=== PATIENT | female | born 1985 | race American Indian/Alaskan Native ===

== ENCOUNTER 2017-04-26 08:17 | Emergency (ER) | payer MEDICAID, OTHER ==
--- NOTE | 2017-04-26 08:39 | EDM.PDOC ---
ED HPI GENERAL MEDICAL PROBLEM - General Chief Complaint: Upper Extremity Injury/Pain Stated Complaint: rib pain. crushed by a door few days ago [phone] Time Seen by Provider: 04/26/17 08:34 Source of Information: Reports: Patient, RN Notes Reviewed - History of Present Illness INITIAL COMMENTS - FREE TEXT/NARRATIVE: Yesterday the patient was hit between a wall and a door when the wind caught the door and smashed her between the door. She c/o of left humerus and left ribs - states the arm hurts to move and the left arm and pain with deep breath Duration: Day(s): (1 day ago) Quality: Reports: Ache, Dull Severity: Mild Improves with: Reports: Rest Worsens with: Reports: Movement Treatments PROGRAM EVALUATION CONSULTANT: Reports: Other (see below) (yasmin) - Related Data Allergies Allergy/AdvReac Type Severity Reaction Status Date / Time No Known Allergies Allergy Verified 04/26/17 08:39 Home Meds: Home Meds Propranolol [Inderal] 20 mg PO BID 10/07/14 [History] Docusate Sodium/Sennosides [Senokot-S] 100 mg PO DAILY 06/16/15 [History] medroxyPROGESTERone [Depo-Provera] 150 mg INJECT .[id number] 06/16/15 [History] risperiDONE Microspheres [RisperiDAL Consta] 37.5 mg INJECT .Q14DAY 07/18/15 [ History] Benztropine [Cogentin] 1 mg PO TID 02/12/16 [History] Past Medical History HEENT History: Reports: None Cardiovascular History: Reports: Blood Clots/VTE/DVT, Hypertension Respiratory History: Reports: None Gastrointestinal History: Reports: Other (See Below) Other Gastrointestinal History: ABDOMINAL FUNCTION DISORDER Genitourinary History: Reports: None 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 History: Reports: 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 Musculoskeletal History: Reports: Fracture Neurological History: Reports: None Psychiatric History: Reports: Schizophrenia Other Psychiatric History: Nicotine addiction Endocrine/Metabolic History: Reports: None Hematologic History: Reports: None Immunologic History: Reports: None Oncologic (Cancer) History: Reports: None Dermatologic History: Reports: None - Infectious Disease History Infectious Disease History: Reports: Chicken Pox - Past Surgical History HEENT Surgical History: Reports: Other (See Below) Social & Family History - Family History Family Medical History: Noncontributory - Tobacco Use Smoking Status *Q: Current Every Day Smoker Years of Tobacco use: 10 Packs/Tins Daily: 1 Used Tobacco, but Quit: No Month Tobacco Last Used: september Second Hand Smoke Exposure: Yes - Alcohol Use Days Per Week of Alcohol Use: 0 - Recreational Drug Use Recreational Drug Use: No Drug Use in Last 12 Months: No Recreational Drug Type: Reports: Marijuana/Hashish Recreational Drug Use Frequency: Not Used In Over 1 Year Recreational Drug Last Use: 2007 Review of Systems - Review of Systems Review Of Systems: ROS reveals no pertinent complaints other than HPI. Trauma Exam - Physical Exam Exam: See Below Exam Limited By: No Limitations General Appearance: Reports: Alert, WD/WN, No Apparent Distress Head: Reports: Atraumatic, Normocephalic Eyes: Bilateral Eye: PERRL Neck: Reports: Full Range of Motion, Normal Alignment, Normal Inspection, Tenderness (left paraspinal tenderness/ no step off or bony tenderness) Respiratory Exam: Reports: No Respiratory Distress, Lungs Clear, Normal Breath Sounds, Rib Tenderness, Left. 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 left humerus- negative Departure - Departure Time of Disposition: 09:17 Disposition: Home, Self-Care 01 Condition: good Clinical Impression: Closed rib fracture Qualifiers: Encounter type: initial encounter Rib fracture type: single rib Laterality: left Qualified Code(s): S22.32XA - Fracture of one rib, left side, initial encounter for closed fracture - Discharge Information Instructions: Rib Fracture, [id number] Referrals: Shania Li MD [Primary Care Provider] - Additional Instructions: Cough and deep breath- several times a day. Use Robaxin and diclofenac for discomfort. Follow up with Primary care for further pain management if needed. Return for increased pain/ fever or difficulty breathing
[2017-04-26 08:56] VITALS: BP 106/76
--- NOTE | 2017-04-26 09:07 | CR ---
Clinical history: 32-year-old female chest trauma. 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 Acute nondisplaced "greenstick" fracture anterolateral sixth rib on the lef t No sign of other rib fracture, underlying lung contusion, dependent pleural effusion or left-sided p neumothorax. Subtle posterior segment left lower lobe atelectasis. Normal cardiac silhouette and mediastinal width. No alveolar edema or dependent pleural effusion. CONCLUSION: Acute left sixth (6) rib fracture.
--- NOTE | 2017-04-26 09:09 | CR ---
Clinical history: 32-year-old female clinical trauma (acute left sixth rib fracture). Interpretation: AP (internal/external rotation) left humerus... negative. Homogeneous normal bone density. No foreign bodies. No sign of pathologic skeletal lesion, left humeral fracture or glenohumeral/elbow joint dislocation .
== END 2017-04-26 09:42 | disposition home or self-care (01) ==
LOC: SUPCPDRO 08:17 → DL.ED 08:17
DX: S22.32XA Fracture of one rib, left side, initial encounter for closed fracture (principal); I10 Essential (primary) hypertension; F17.210 Nicotine dependence, cigarettes, uncomplicated; Z79.899 Other long term (current) drug therapy; W23.0XXA Caught, crushed, jammed, or pinched between moving objects, initial encounter
CPT/HCPCS: 71101-LT; 73060-LT; 99283